=== PATIENT | female | born 1990 | race Caucasian/White ===

== ENCOUNTER 2018-03-07 09:04 | Emergency (ER) | payer OTHER ==
[2018-03-07 09:09] VITALS: BP 127/83; PULSE 73; RESP 16; TEMP 97.5
[2018-03-07] MEDS ORDERED: DIPH,PERTUS(ACELL)TETVAC-LF 0.5 ML VIAL IM ONE (09:20)
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
== END 2018-03-07 10:47 | disposition home or self-care (01) ==
LOC: EC 09:04
DX: S61.411A Laceration without foreign body of right hand, initial encounter (principal); Z23 Encounter for immunization; Z87.891 Personal history of nicotine dependence; W25.XXXA Contact with sharp glass, initial encounter
CPT/HCPCS: 90471; 90715; 99282

== ENCOUNTER 2018-08-05 16:44 | Emergency (ER) | payer BC, OTHER ==
--- NOTE | 2018-08-05 17:45 | ED ---
General Adult HPI - General Chief complaint: Shortness of Breath Stated complaint: SOB Time Seen by Provider: 08/05/18 17:30 Source: patient Mode of arrival: wheelchair Limitations: no limitations - History of Present Illness Initial comments: Patient is a 28-year-old female presents with chief complaint shortness of breath. This been going on and off for 3 months. Patient states that her symptoms were worse today. The patient states that she is violating, moving, and is very busy at work. She did not have any history of anxiety disorder however she states that she has been essentially anxious recently patient also complaining of tingling in bilateral upper extremities, and in her face. She states that these symptoms wax and wane and she notes that it is worse with hyperventilation. Patient is otherwise healthy does not use any medications on a daily basis, she is not a smoker, drinks occasionally, no recreational drug use. - Related Data Home Medications Medication Instructions Recorded Confirmed No Known Home Medications 03/07/18 08/05/18 Allergies Allergy/AdvReac Type Severity Reaction Status Date / Time No Known Allergies Allergy Verified 08/05/18 17:53 Review of Systems ROS Statement: Those systems with pertinent positive or pertinent negative responses have been documented in the HPI. ROS Other: All systems not noted in ROS Statement are negative. Respiratory: Reports: dyspnea Neurological: Reports: paresthesias Past Medical History Past Medical History: No Reported History History of Any Multi-Drug Resistant Organisms: None Reported Past Surgical History: No Surgical Hx Reported Past Anesthesia/Blood Transfusion Reactions: No Reported Reaction Past Psychological History: No Psychological Hx Reported Smoking Status: Former smoker Past Alcohol Use History: Occasional Past Drug Use History: None Reported - Past Family History Mother Family Medical History: No Reported History Additional Family Medical History / Comment(s): emphysema General Exam Limitations: no limitations General appearance: alert, in no apparent distress Head exam: Present: atraumatic, normocephalic Eye exam: Present: normal appearance ENT exam: Present: normal exam Neck exam: Present: normal inspection Respiratory exam: Present: normal lung sounds bilaterally. Absent: respiratory distress, wheezes Cardiovascular Exam: Present: regular rate, normal rhythm GI/Abdominal exam: Present: soft. Absent: distended, tenderness Rectal exam: Present: deferred Extremities exam: Present: normal inspection Back exam: Present: normal inspection Neurological exam: Present: alert, oriented X3 Psychiatric exam: Present: normal affect, normal mood, anxious Skin exam: Present: warm, dry, intact Course Vital Signs 08/05/18 08/05/18 17:15 17:30 Temperature 98.8 F Pulse Rate 117 H Respiratory 22 18 Rate Blood Pressure 120/73 O2 Sat by Pulse 100 Oximetry Medical Decision Making - Medical Decision Making Patient is a 28-year-old female presents with a chief complaint of shortness of breath. On initial evaluation, patient is slightly tachycardic. Otherwise vitals are stable. Oxygen saturation 100%. History and physical examination was consistent with anxiety/panic attack and hyperventilation. Patient is somewhat tearful on exam secondary to being scared. Patient will be evaluated in the patient lives including EKG, and d-dimer. I discussed that she is otherwise very low risk for PE given her tachycardia we will send this test to rule it out. Laboratory evaluation this patient is unremarkable including a negative d-dimer. X-ray shows no acute process. At this time, patient stable for discharge. She was instructed to follow up with primary care in 1-2 days, return to the ED if symptoms worsen or change. Patient was informed that there is likely a large component of anxiety contributing to her symptoms. She was instructed on breathing techniques and was also instructed to follow up with primary care regarding this issue. - Lab Data Result diagrams: 08/05/18 17:55 08/05/18 17:55 Lab Results 08/05/18 08/05/18 08/05/18 Range/Units 17:55 17:55 17:55 WBC 7.1 (3.8-10.6) k/uL RBC 5.35 (3.80-5.40) m/uL Hgb 15.0 (11.4-16.0) gm/dL Hct 43.2 (34.0-46.0) % MCV 80.6 (80.0-100.0) fL MCH 27.9 (25.0-35.0) pg MCHC 34.6 (31.0-37.0) g/dL RDW 14.1 (11.5-15.5) % Plt Count 36 L (150-450) k/uL Neutrophils % 65 % Lymphocytes % 23 % Monocytes % 8 % Eosinophils % 2 % Basophils % 1 % Neutrophils # 4.6 (1.3-7.7) k/uL Lymphocytes # 1.6 (1.0-4.8) k/uL Monocytes # 0.6 (0-1.0) k/uL Eosinophils # 0.1 (0-0.7) k/uL Basophils # 0.1 (0-0.2) k/uL Manual Slide Review Performed D-Dimer 0.28 (<0.60) mg/L FEU Sodium 142 (137-145) mmol/L Potassium 3.6 (3.5-5.1) mmol/L Chloride 113 H (98-107) mmol/L Carbon Dioxide 18 L (22-30) mmol/L Anion Gap 11 mmol/L BUN 11 (7-17) mg/dL Creatinine 0.60 (0.52-1.04) mg/dL Est GFR (CKD-EPI)AfAm >90 (>60 ml/min/1.73 sqM) Est GFR (CKD-EPI)NonAf >90 (>60 ml/min/1.73 sqM) Glucose 107 H (74-99) mg/dL Calcium 10.3 H (8.4-10.2) mg/dL HCG, Qual Not Detected Urine Color Urine Appearance (Clear) Urine pH (5.0-8.0) Ur Specific [place] (1.001-1.035) Urine Protein (Negative) Urine Glucose (UA) (Negative) Urine Ketones (Negative) Urine Blood (Negative) Urine Nitrite (Negative) Urine Bilirubin (Negative) Urine Urobilinogen (<2.0) mg/dL Ur Leukocyte Esterase (Negative) 08/05/18 Range/Units 17:55 WBC (3.8-10.6) k/uL RBC (3.80-5.40) m/uL Hgb (11.4-16.0) gm/dL Hct (34.0-46.0) % MCV (80.0-100.0) fL MCH (25.0-35.0) pg MCHC (31.0-37.0) g/dL RDW (11.5-15.5) % Plt Count (150-450) k/uL Neutrophils % % Lymphocytes % % Monocytes % % Eosinophils % % Basophils % % Neutrophils # (1.3-7.7) k/uL Lymphocytes # (1.0-4.8) k/uL Monocytes # (0-1.0) k/uL Eosinophils # (0-0.7) k/uL Basophils # (0-0.2) k/uL Manual Slide Review D-Dimer (<0.60) mg/L FEU Sodium (137-145) mmol/L Potassium (3.5-5.1) mmol/L Chloride (98-107) mmol/L Carbon Dioxide (22-30) mmol/L Anion Gap mmol/L BUN (7-17) mg/dL Creatinine (0.52-1.04) mg/dL Est GFR (CKD-EPI)AfAm (>60 ml/min/1.73 sqM) Est GFR (CKD-EPI)NonAf (>60 ml/min/1.73 sqM) Glucose (74-99) mg/dL Calcium (8.4-10.2) mg/dL HCG, Qual Urine Color Light Yellow Urine Appearance Clear (Clear) Urine pH 6.5 (5.0-8.0) Ur Specific [place] 1.005 (1.001-1.035) Urine Protein Negative (Negative) Urine Glucose (UA) Negative (Negative) Urine Ketones 1+ H (Negative) Urine Blood Negative (Negative) Urine Nitrite Negative (Negative) Urine Bilirubin Negative (Negative) Urine Urobilinogen <2.0 (<2.0) mg/dL Ur Leukocyte Esterase Negative (Negative) Disposition Clinical Impression: SOB (shortness of breath), Panic attack as reaction to stress Disposition: HOME SELF-CARE Condition: Good Instructions (If sedation given, give patient instructions): Anxiety (ED) Is patient prescribed a controlled substance at d/c from ED?: No Referrals: Lionel Moise DO [Primary Care Provider] - 1-2 days
[2018-08-05 18:25] LABS: Appearance,Urine Clear (Clear); Bilirubin,Urine Negative (Negative); Blood,Urine Negative (Negative); Color,Urine Light Yellow; Glucose,Urine (UA) Negative (Negative); Ketones,Urine 1+ (Negative); Leukocyte Esterase,Urine Negative (Negative); Nitrite,Urine Negative (Negative); PH, Urine 6.5 (5.0-8.0); Protein,Urine Negative (Negative); Specific Gravity,Urine 1.005 (1.001-1.035); Urobilinogen,Urine <2.0 mg/dL (<2.0)
[2018-08-05 18:33] LABS: HCG,Qualitative Serum Not Detected
[2018-08-05 18:35] LABS: Anion Gap 11 mmol/L; Blood Urea Nitrogen 11 mg/dL (7-17); Calcium 10.3 mg/dL (8.4-10.2); Carbon Dioxide 18 mmol/L (22-30); Chloride 113 mmol/L (98-107); Glucose 107 mg/dL (74-99); Potassium 3.6 mmol/L (3.5-5.1); Sodium 142 mmol/L (137-145)
[2018-08-05 18:39] LABS: Basophils # (A) 0.1 k/uL (0-0.2); Basophils % (A) 1 %; Eosinophils # (A) 0.1 k/uL (0-0.7); Eosinophils % (A) 2 %; HCT 43.2 % (34.0-46.0); Lymphocytes # (A) 1.6 k/uL (1.0-4.8); Lymphocytes % (A) 23 %; MCH 27.9 pg (25.0-35.0); MCHC 34.6 g/dL (31.0-37.0); MCV 80.6 fL (80.0-100.0); Monocytes # (A) 0.6 k/uL (0-1.0); Monocytes % (A) 8 %; Neutrophils # (A) 4.6 k/uL (1.3-7.7); Neutrophils % (A) 65 %; Platelet Count 36 k/uL (150-450); RBC 5.35 m/uL (3.80-5.40); RDW 14.1 % (11.5-15.5); WBC 7.1 k/uL (3.8-10.6)
[2018-08-05 19:04] VITALS: RESP 18
--- NOTE | 2018-08-05 19:42 | XR ---
EXAMINATION TYPE: XR chest 2V DATE OF EXAM: 08/05/2018 COMPARISON: NONE HISTORY: Dyspnea TECHNIQUE: Frontal and lateral views of the chest are obtained. FINDINGS: There is no focal air space opacity, pleural effusion, or pneumothorax seen. The cardiac silhouette size is within normal limits. The osseous structures are intact. IMPRESSION: No acute cardiopulmonary process.
[2018-08-05 20:06] VITALS: BP 115/74; PULSE 75; TEMP 98.2
== END 2018-08-05 20:14 | disposition home or self-care (01) ==
LOC: EC 16:44
DX: F43.0 Acute stress reaction (principal); Z87.891 Personal history of nicotine dependence
CPT/HCPCS: 36415; 71046; 80048; 81003; 84703; 85025; 85379; 93005; 99285

== ENCOUNTER 2019-07-19 22:10 | Inpatient (IN) | payer BC, OTHER ==
[2019-07-19] MEDS ORDERED: ACETAMINOPHEN IV (For NPO) 1,000 MG in EMPTY BAG 1 BAG IVPB ONE (23:00)
[2019-07-19 23:01] LABS: Basophils % (A) 0 %; Eosinophils # (A) 0.1 k/uL (0-0.7); Eosinophils % (A) 1 %; HCT 34.5 % (34.0-46.0); HGB 11.4 gm/dL (11.4-16.0); Lymphocytes # (A) 0.7 k/uL (1.0-4.8); Lymphocytes % (A) 7 %; MCH 27.4 pg (25.0-35.0); Mean Platelet Volume 7.1; Monocytes # (A) 0.2 k/uL (0-1.0); Monocytes % (A) 2 %; Neutrophils # (A) 9.2 k/uL (1.3-7.7); Neutrophils % (A) 89 %; Platelet Count 209 k/uL (150-450); RBC 4.16 m/uL (3.80-5.40); RDW 13.9 % (11.5-15.5); WBC 10.3 k/uL (3.8-10.6)
[2019-07-19 23:13] LABS: Appearance,Urine Cloudy (Clear); Bacteria,Urine Occasional /hpf; Bilirubin,Urine Negative (Negative); Blood,Urine Trace (Negative); Color,Urine Light Yellow; Glucose,Urine (UA) Negative (Negative); Ketones,Urine Negative (Negative); Leukocyte Esterase,Urine Large (Negative); Mucus,Urine Rare /hpf; Nitrite,Urine Negative (Negative); PH, Urine 6.5 (5.0-8.0); Protein,Urine Trace (Negative); RBC,Urine 2 /hpf (0-5); Specific Gravity,Urine 1.008 (1.001-1.035); Squamous Epithelial Cell,Urine 5 /hpf (0-4); Urobilinogen,Urine <2.0 mg/dL (<2.0); WBC,Urine 54 /hpf (0-5)
[2019-07-19] MEDS: LACTATED RINGERS 1,000 ML IV SCH (23:15)
[2019-07-20] MEDS: BETAMET ACET-BETAMETH SOD PHOS 6 MG/ML VIAL IM SCH (00:10)
[2019-07-20] MEDS: LACTATED RINGERS 1,000 ML IV SCH ×5 (00:41→20:03)
[2019-07-20] MEDS: CEFEPIME 1 GM in SODIUM CHLORIDE 0.9% 50 ML IVPB SCH ×2 (01:00→13:14)
[2019-07-20 04:04] VITALS: RESP 16
[2019-07-20] MEDS ORDERED: ACETAMINOPHEN TAB 500 MG TAB PO PRN (06:45)
--- NOTE | 2019-07-20 08:52 | P.HPOB ---
History of Present Illness H&P Date: 07/20/19 Chief Complaint: Fever of 101 at home, right flank pain This is a 29-year-old white female 2 para 1001 EDC 08/13/2019 at 36-2/7 weeks' gestation. Patient presented from home with a history of a fever of 101 that was intermittent over the past 2-3 days. This was accompanied by shakes and chills, and right flank pain. Fetus is been active throughout the . She denied vaginal bleeding or fluid leakage. No uterine contractions. Past history is essentially negative. Past surgical history section 2015. ALLERGIES none known. Current medications vitamins daily, Tylenol every 4-6 hours. Social history patient is , she is never been a smoker, she denies alcohol or drug use. history has been essentially unremarkable, group B strep cultures done in the office this week, pending. Family history is noncontributory. On exam patient is 5 foot 8 inches, 230 pounds, initial temperature in the ER 100.5, elevated to 101. Initial pulse 130, blood pressure 130s over 70s. Respiratory rate 20 in the emergency room this morning. The general physical exam reveals chest to be clear, abdomen nontender, fundal height 36 cm, vertex presentation by Tesfaye's. There is mild right flank pain this morning noted by CVA tenderness. Extremities reveal no edema. Cervix is long, closed, posterior, soft. heart rate is consistent with reactive NST, tachycardia noted early this morning in the emergency room. UA consistent with pyelonephritis with leukocytes, white blood cells, and bacteria, culture pending. White count on admission 10.3, CO2 slightly decreased, sodium 133. Impression: Right pyelonephritis, tachypnea tachycardia and febrile last night, vital signs now normalized. Co-vid testing in the emergency department negative. Plan: Continue cefepime 1 g every 12 hours, good clinical response noted after first dose. First dose received at 0100. Celestone 12.5 mg first dose received, repeat dose in 12 hours. Continue oral Tylenol 1000mg q 4-6 hours as needed for fever. Regular diet. Patient may shower. Vital signs every 4 hours. Patient will continue on IV antibiotics until afebrile for 24 hours, then likely home on oral cephalosporin for 10-14 days. She is scheduled for repeat section on 08/13/19 with tubal ligation. Review of Systems Constitutional: Reports as per HPI, Reports chills, Reports fever, Reports lethargy Past Medical History Past Medical History: No Reported History History of Any Multi-Drug Resistant Organisms: None Reported Past Surgical History: No Surgical Hx Reported Past Anesthesia/Blood Transfusion Reactions: No Reported Reaction Past Psychological History: No Psychological Hx Reported Smoking Status: Never smoker Past Alcohol Use History: None Reported Past Drug Use History: None Reported - Past Family History Mother Family Medical History: Asthma, COPD Additional Family Medical History / Comment(s): emphysema Medications and Allergies Home Medications Medication Instructions Recorded Confirmed Type Acetaminophen [Tylenol Extra 500 mg PO Q6HR PRN 07/19/19 07/19/19 History Strength] Pnv No.95/Ferrous Fum/Folic AC 1 each PO DAILY 07/19/19 07/19/19 History [ Multivitamin Tablet] Allergies Allergy/AdvReac Type Severity Reaction Status Date / Time No Known Allergies Allergy Verified 07/19/19 22:27 Exam Vital Signs Temp Pulse Resp BP Pulse Ox 07/20/19 04:00 97.7 F 89 16 111/64 98 07/20/19 01:00 98.2 F 07/20/19 00:35 101.2 F H 109 H 18 104/59 97 07/20/19 00:00 101.2 F H 109 H 18 104/59 97 07/19/19 23:50 101.2 F H 109 H 18 104/59 97 07/19/19 22:55 100.5 F H 121 H 20 117/68 99 Intake and Output 07/19/19 07/20/19 07/20/19 22:59 06:59 14:59 Other: # Voids 2 Weight 104.326 kg 104.326 kg See dictation under HPI please Results Result Diagrams: 07/19/19 22:30 07/19/19 22:30 Abnormal Lab Results - Last 24 Hours (Table) 07/19/19 07/19/19 07/19/19 Range/Units 22:30 22:30 22:55 Neutrophils # 9.2 H (1.3-7.7) k/uL Lymphocytes # 0.7 L (1.0-4.8) k/uL Sodium 133 L (137-145) mmol/L Carbon Dioxide 19 L (22-30) mmol/L Urine Appearance Cloudy H (Clear) Urine Protein Trace H (Negative) Urine Blood Trace H (Negative) Ur Leukocyte Esterase Large H (Negative) Urine WBC 54 H (0-5) /hpf Ur Squamous Epith Cells 5 H (0-4) /hpf Urine Bacteria Occasional H (None) /hpf Urine Mucus Rare H (None) /hpf Microbiology - Last 24 Hours (Table) 07/19/19 22:55 Urine Culture - Preliminary Urine,Voided Assessment and Plan Assessment: 36-2/7 weeks intrauterine , pyelonephritis. Responding well to antibiotics and firmness. Covid testing negative. Plan: Continue cefepime 1 g every 12 hours IV piggyback. Second dose of steroids ordered. Continue close surveillance. Anticipate discharge home when afebrile for 24 hours, likely tomorrow morning, on oral cephalosporins for 10-14 days.
[2019-07-21] MEDS: BETAMET ACET-BETAMETH SOD PHOS 6 MG/ML VIAL IM SCH (00:25)
[2019-07-21] MEDS: CEFEPIME 1 GM in SODIUM CHLORIDE 0.9% 50 ML IVPB SCH (00:26)
[2019-07-21] MEDS: LACTATED RINGERS 1,000 ML IV SCH (00:39)
[2019-07-21 00:43] VITALS: BP 108/65; PULSE 81; TEMP 97.8
--- NOTE | 2019-07-21 11:13 | P.DS ---
Providers Date of admission: 07/20/19 11:40 Expected date of discharge: 07/21/19 Attending physician: Ana Adair Primary care physician: Stated None Hospital Course: This is a 29-year-old white female 2 para 1001 who presented at 36-3/7 weeks with right flank pain, fever of 101 at home, and shaking chills. Urine analysis was consistent with UTI, diagnosis of pyelonephritis was made. White count on admission 10.4. Please see dictated history and physical for details. Patient was admitted, 17 1 g was given every 12 hours intravenously 3 doses. O firm it was also given, and patient defervesced. Betamethasone was given 2 doses. After patient was afebrile for 24 hours she requested discharge home. She has been given a prescription for Keflex 500 mg to be taken orally every 8 hours for 10 days. She will use Tylenol if needed, however I've asked her to call me if the fever shakes or chills should return. Fetus is been active throughout the and reactive NST was noted. On admission patient was tachycardic with a pulse of 130, however was discharged home with a pulse in the 70s. She will follow-up in the office with me as scheduled this week. Increase oral fluids, call with any issues or difficulties. Patient Condition at Discharge: Good Plan - Discharge Summary Discharge Rx Participant: No New Discharge Prescriptions: No Action Pnv No.95/Ferrous Fum/Folic AC [ Multivitamin Tablet] 1 each PO DAILY Acetaminophen [Tylenol Extra Strength] 500 mg PO Q6HR PRN PRN Reason: Fever Discharge Medication List Acetaminophen [Tylenol Extra Strength] 500 mg PO Q6HR PRN 07/19/19 [History] Pnv No.95/Ferrous Fum/Folic AC [ Multivitamin Tablet] 1 each PO DAILY 07/19/19 [History] Follow up Appointment(s)/Referral(s): Ana Adair MD [STAFF PHYSICIAN] - 1 Week Patient Instructions/Handouts: Urinary Tract Infection in (DC) Discharge Disposition: HOME SELF-CARE
== END 2019-07-21 01:25 | disposition home or self-care (01) | DRG 833 ==
LOC: FBPOP 22:10 → 4FBP 07-20 00:11 → OBSVTOIN 07-20 11:40
PROVIDERS: ADMIT Obstetrics & Gynecology; ATTEND Obstetrics & Gynecology
DX: O23.03 Infections of kidney in pregnancy, third trimester (principal); Z3A.36 36 weeks gestation of pregnancy; O36.8330 Maternal care for abnormalities of the fetal heart rate or rhythm, third trimester, not applicable or unspecified; Z82.5 Family history of asthma and other chronic lower respiratory diseases
CPT/HCPCS: 59025; 80051; 81001; 85025; 87040; 87077; 87086; 87186; 87635; 96360; 96372; 99214

== ENCOUNTER 2019-08-03 21:45 | Outpatient (CLI) | payer BC, OTHER ==
[2019-08-03 23:28] VITALS: BP 131/74; PULSE 101; RESP 16; TEMP 98
--- NOTE | 2019-09-03 11:50 | P.MSEPDOC ---
Presenting Problems - Arrival Data Date of Arrival on Unit: 08/03/19 Time of Arrival on Unit: 21:45 Mode of Transport: Wheelchair - Complaint OB-Reason for Admission/Chief Complaint: Possible Onset of Labor Comment: contractions 5 min apart since 1829 Medical History - Information : 2 Para: 1 Term: 1 : 0 Abortions: Spontaneous or Elective: 0 Number of Living Children: 1 - Gestational Age Gestational Age by MALIK (wks/days): 38 Weeks and 2 Days - History Complications: Prior Review of Systems - Review of Systems Constitutional: No problems Breast: No problems ENT: No problems Cardiovascular: No problems Respiratory: No problems Gastrointestinal: No problems Genitourinary: No problems Musculoskeletal: No problems Neurological: No problems Skin: No problems Vital Signs - Temperature Temperature: 98.0 F Temperature Source: Oral - Pulse Right Sitting Pulse Rate: 101 Pulse Assessment Method: Automatic Cuff - Respirations Respiratory Rate: 16 Oxygen Delivery Method: Room Air O2 Sat by Pulse Oximetry: 98 - Blood Pressure Right Arm Sitting Blood Pressure: 131/74 Blood Pressure Mean: 93 Blood Pressure Source: Automatic Cuff Medical Screen Scoring (Pre) - Cervical Exam Dilation: 0 cm = 0 Membranes: Intact - Uterine Contractions Frequency: Scheduled / = 6 Duration: > 40 seconds = 2 - Total Score - Baby A Total Score - Baby A: 8 - Total Score - Baby B Total Score - Baby B: 8 - Total Score - Baby C Total Score - Baby C: 8 - Level of Risk - Baby A Level of Risk - Baby A: Medium (6-9) - Level of Risk - Baby B Level of Risk - Baby B: Medium (6-9) - Level of Risk - Baby C Level of Risk - Baby C: Medium (6-9) Physician Notification (Pre) - Physician Notified Physician Notified Date: 08/03/19 Physician Notified Time: 23:07 New Order Received: Yes - Notification Comment Comment: Pt has apt with [facility] on . Pt has R C/S sced for 08/12 Disposition - Disposition OB Disposition: Discharge to home, Written follow up instructions reviewed Discharge Date: 08/03/19 Discharge Time: 23:10 I agree with the RN Medical Screening Exam: Yes Risk & Benefit of care provided described in d/c instruction: Yes Diagnosis: FALSE LABOR AT OR AFTER 37 COMPLETED WEEKS OF GESTATION
== END 2019-08-03 23:10 | disposition home or self-care (01) ==
LOC: FBPOP 21:45
PROVIDERS: ATTEND Obstetrics & Gynecology Obstetrics
DX: O47.1 False labor at or after 37 completed weeks of gestation (principal); Z3A.38 38 weeks gestation of pregnancy
CPT/HCPCS: 59025; 99213

== ENCOUNTER 2019-08-09 06:02 | Inpatient (IN) | payer BC, OTHER ==
[2019-08-08 12:33] VITALS: BMI 35.7
[2019-08-09] MEDS ORDERED: LACTATED RINGERS 1,000 ML IV ONE (06:18)
[2019-08-09] MEDS ORDERED: CITRIC ACID-SODIUM CITRATE 15 ML CUP PO ONE (06:18)
[2019-08-09 06:41] LABS: Basophils % (A) 0 %; Eosinophils # (A) 0.2 k/uL (0-0.7); Eosinophils % (A) 2 %; HCT 34.8 % (34.0-46.0); HGB 11.7 gm/dL (11.4-16.0); Hypochromasia Slight; Lymphocytes # (A) 1.8 k/uL (1.0-4.8); Lymphocytes % (A) 18 %; MCHC 33.6 g/dL (31.0-37.0); MCV 80.3 fL (80.0-100.0); Mean Platelet Volume 7.1; Monocytes # (A) 0.7 k/uL (0-1.0); Monocytes % (A) 7 %; Neutrophils # (A) 7.1 k/uL (1.3-7.7); Neutrophils % (A) 70 %; Platelet Count 276 k/uL (150-450); RBC 4.33 m/uL (3.80-5.40); RDW 13.9 % (11.5-15.5); WBC 10.1 k/uL (3.8-10.6)
[2019-08-09] MEDS ORDERED: KETOROLAC 30 MG/ML 1 ML VIAL ONE (08:04)
[2019-08-09] MEDS ORDERED: NALBUPHINE 10 MG/ML (1 ML AMP) ONE (08:04)
[2019-08-09] MEDS ORDERED: MORPHINE SULFATE (PF) 0.3 MG/0.3 ML SYR ONE (08:04)
[2019-08-09] MEDS ORDERED: OXYTOCIN 10 UNIT/ML 1 ML VIAL ONE (08:04)
[2019-08-09] MEDS ORDERED: ONDANSETRON 4 MG/2 ML VIAL ONE (08:04)
--- NOTE | 2019-08-09 08:59 | P.OP ---
Date of Procedure: 08/09/19 Preoperative Diagnosis: 39 and one sevenths week intrauterine , previous declining . History of macrosomia. Postoperative Diagnosis: Same, nuchal cord 1, liveborn male . Normal-appearing tubes and ovaries bilaterally. Procedure(s) Performed: Repeat low transverse section. Anesthesia: spinal Surgeon: Ana Adair Program Director/Morning Show Host #1: Windy Cowan Estimated Blood Loss (ml): 669 IV fluids (ml): 700 Urine output (ml): 300 Pathology: none sent Condition: stable Disposition: observation Operative Findings: Liveborn male , left occiput transverse position, 4370 g. Nuchal cord 1. Normal-appearing tubes and ovaries bilaterally. Description of Procedure: Patient is brought to the operating suite where a spinal analgesia is admini stered without difficulty. Antibiotics are given. The appropriate timeout is performed to assure proper patient and procedural identification. Option for tubal ligation has been declined. The abdomen is prepped and draped in usual sterile fashion. Left lateral uterine displacement is performed. Cline catheter is placed to direct drainage. The analgesia is checked and noted to be adequate. A repeat low transverse skin incision is made. This is carried down through the subcutaneous tissue which is isolated, scored, and extended bilaterally with curved Hoskins scissors. Fascia is next identified and incised, and extended bilaterally with curved Hoskins scissors. Peritoneum is entered, entry is atraumatic. Bladder blade is created with Metzenbaum scissors and at all times the bladder is Well from the operative field to avoid bladder and/or ureteral injury. A repeat low transverse uterine incision is made in this is extended with blunt dissection. Artificial amniorrhexis reveals abundant clear fluid. Infant's head is delivered in the left occiput transverse position. There was a nuchal cord 1 that is reduced. The oropharynx, nasopharynx, and external nares were all bulb suctioned on the perineal body. Patient is officially delivered of a liveborn male infant at 0820 hours. Umbilical cord is doubly clamped and ligated, he is handed to waiting nurses for evaluation where scores of 8 and 9 at one and 5 minutes respectively are given. weighed 9 lbs. 10 oz. or 4370 g. The placenta is delivered manually, it is inspected and noted to be intact with trivascular cord at 0821 hours. Uterus is then massaged. Pitocin is given. Uterus is closed in a two-step fashion, first layer running locking with 0 Vicryl, second layer imbricated with 0 Vicryl is well. Excellent reapproximation is noted. Bilateral tubes and ovaries appear normal to inspection. The abdomen is suctioned with suction on guard and the uterus is placed back into the abdominal cavity. Bilateral gutters are inspected and cleaned. Hemostasis is excellent. The peritoneum is allowed to close by secondary intention. The fascia is closed in a running stitch of 0 Vicryl with over ligation in the midline. Subcutaneous tissue is irrigated, inspected, noted to be clean and dry. It is reapproximated with 3-0 Vicryl in a running fashion. Depth of subcutaneous tissue 6-8 cm. 4-0 undyed Monocryl is used for final subcuticular skin closure. Steri-Strips and Mastisol are applied to the wound. Uterus is massaged. Patient is brought back to the recovery room in very good condition with stable vital signs. All sponge needle and enhancement counts are correct. Patient is requesting circumcision for her infant son. Cline is noted to be draining clear urine.
[2019-08-09] MEDS ORDERED: diphenhydrAMINE 25 MG CAP PO PRN (09:03)
[2019-08-09] MEDS ORDERED: SIMETHICONE 80 MG CHEWABLE PO PRN (09:03)
[2019-08-09] MEDS ORDERED: diphenhydrAMINE 50 MG/ML 1 ML VIAL IVP PRN ×2 (09:03)
[2019-08-09] MEDS ORDERED: METOCLOPRAMIDE 5 MG/ML 2 ML VIAL IVP PRN (09:03)
[2019-08-09] MEDS ORDERED: ZOLPIDEM 5 MG TAB PO PRN (09:03)
[2019-08-09] MEDS ORDERED: NALOXONE 0.4 MG/ML 1 ML VIAL IV PRN (09:03)
[2019-08-09] MEDS ORDERED: diphenhydrAMINE 50 MG CAP PO PRN (09:03)
[2019-08-09] MEDS ORDERED: ONDANSETRON 4 MG/2 ML VIAL IVP PRN (09:03)
--- NOTE | 2019-08-09 09:03 | P.HPOB ---
History of Present Illness H&P Date: 08/09/19 Chief Complaint: Here for repeat section at 39 and one sevenths weeks, declining VB This is a 29-year-old white female 2 para 1001 EDC 08/15/2019 at 39 and one sevenths weeks' gestation. Patient presents for repeat low transverse section. She is declining option for tubal ligation. Fetus is been active throughout the . Past medical history is unremarkable. Past surgical history section 2016 for failure to progress. Current medications vitamins daily. ALLERGIES none known. Family history significant for hypertension, emphysema, [place]. Social history patient is , she is never been a smoker, she denies al cohol or drug use. history is significant for blood type A+, rubella status immune. VDRL testing, urine culture, hepatitis B surface antigen, HIV testing, gonorrhea and chlamydia cultures, group B strep cultures all negative. One-hour Glucola elevated, 3 hour GTT within normal limits. On exam this is a pleasant white female who is 5 foot 8 inches, 235 pounds, blood pressure 114/72 on admission. The general physical exam is within normal limits. Abdomen is obvious E gravid with a fundal height of 40+ centimeters. Infant is vertex to Tesfaye's maneuvers. Cervix is fingertip, 60%, -2 station. heart rate is consistent with reactive NST. Impression: 39 and one sevenths weeks intrauterine , declining option for , declining tubal ligation. Here for repeat low transverse section. Plan: Antibiotics are to be given. All risks benefits and alternatives of the her seizure are discussed in detail. All questions answered. We will proceed with repeat low transverse section with spinal analgesia. Review of Systems Constitutional: Reports as per HPI Past Medical History Past Medical History: No Reported History Additional Past Medical History / Comment(s): recent tx for UTI History of Any Multi-Drug Resistant Organisms: None Reported Past Surgical History: Section Additional Past Surgical History / Comment(s): dental Past Anesthesia/Blood Transfusion Reactions: No Reported Reaction Past Psychological History: No Psychological Hx Reported Smoking Status: Former smoker Past Alcohol Use History: None Reported Additional Past Alcohol Use History / Comment(s): quit smoking age 18, smoked for 1 yr Past Drug Use History: None Reported - Past Family History Mother Family Medical History: COPD Additional Family Medical History / Comment(s): emphysema Father Family Medical History: Coronary Artery Disease (CAD), Hypertension, Myocardial Infarction ([place]) Additional Family Medical History / Comment(s): Medications and Allergies Home Medications Medication Instructions Recorded Confirmed Type Pnv No.95/Ferrous Fum/Folic AC 1 each PO DAILY 07/19/19 08/09/19 History [ Multivitamin Tablet] Allergies Allergy/AdvReac Type Severity Reaction Status Date / Time No Known Allergies Allergy Verified 08/09/19 06:18 Exam Vital Signs Temp Pulse Resp BP Pulse Ox 08/09/19 06:20 98.3 F 100 18 114/72 98 Intake and Output 08/08/19 08/09/19 08/09/19 22:59 06:59 14:59 Other: Weight 106.594 kg See dictation under HPI please Results Result Diagrams: 08/09/19 06:25 Assessment and Plan Assessment: 39 and one sevenths week intrauterine , here for repeat low transverse section, declining . Plan: For repeat low transverse section this morning. Antibiotics given. All questions answered. Declining option for tubal ligation. Time with Patient: Less than 30
[2019-08-09] MEDS: LACTATED RINGERS 1,000 ML IV SCH ×3 (13:41→22:02)
[2019-08-09] MEDS: KETOROLAC 30 MG/ML 1 ML VIAL IVP SCH ×2 (15:23→21:58)
[2019-08-09] MEDS: SENNOSIDES-DOCUSATE SODIUM 1 EACH TAB PO SCH (19:12)
[2019-08-10] MEDS: KETOROLAC 30 MG/ML 1 ML VIAL IVP SCH ×3 (04:16→13:13)
[2019-08-10 06:11] LABS: Basophils % (A) 0 %; Eosinophils # (A) 0.2 k/uL (0-0.7); Eosinophils % (A) 2 %; HGB 10.1 gm/dL (11.4-16.0); Hypochromasia Slight; Lymphocytes # (A) 1.8 k/uL (1.0-4.8); Lymphocytes % (A) 17 %; MCH 26.8 pg (25.0-35.0); MCHC 32.7 g/dL (31.0-37.0); MCV 81.9 fL (80.0-100.0); Monocytes # (A) 0.8 k/uL (0-1.0); Monocytes % (A) 7 %; Neutrophils # (A) 7.7 k/uL (1.3-7.7); Neutrophils % (A) 72 %; Platelet Count 230 k/uL (150-450); RBC 3.78 m/uL (3.80-5.40); RDW 14.3 % (11.5-15.5); WBC 10.7 k/uL (3.8-10.6)
--- NOTE | 2019-08-10 07:19 | P.PN ---
Progress Note - Text 08/09 700am 29-year-old female status post with a spinal Duramorph. Patient seen and evaluated this morning she has a VAS of 0 with no complains of nausea vomiting. She does have complaints of pruritus should subside the end of the day
[2019-08-10] MEDS: ACETAMINOPHEN TAB 325 MG TAB PO PRN ×3 (08:59→23:37)
[2019-08-10] MEDS: SENNOSIDES-DOCUSATE SODIUM 1 EACH TAB PO SCH ×2 (09:00→20:17)
--- NOTE | 2019-08-10 09:13 | P.PN ---
Subjective Progress Note Date: 08/10/19 Principal diagnosis: Postoperative day #1 Slept well, positive flatus, pain well controlled. Desiring circumcision for her . Objective - Vital Signs Vital signs: Vital Signs Temp 98.1 F 08/10/19 04:00 Pulse 85 08/10/19 04:00 Resp 18 08/10/19 04:00 BP 116/77 08/10/19 04:00 Pulse Ox 96 08/10/19 04:00 Intake & Output 08/09/19 08/10/19 08/10/19 18:59 06:59 18:59 Output Total 1169 1500 Balance -1169 -1500 Output: Urine 500 1500 Estimated Blood Loss 669 Other: Voiding Method Indwelling Catheter - Constitutional General appearance: Present: average body habitus, cooperative - EENT Eyes: Present: PERRLA ENT: Present: hearing grossly normal - Neck Neck: Present: normal ROM - Respiratory Respiratory: bilateral: CTA - Cardiovascular Rhythm: regular - Gastrointestinal Gastrointestinal Comment(s): Incision clean and dry, intact, Steri-Strips applied. Fundus firm, midline, symmetric, 18 week size. General gastrointestinal: Present: normal bowel sounds - Integumentary Integumentary: Present: normal - Neurologic Neurologic: Present: CNII-XII intact - Musculoskeletal Musculoskeletal: Present: gait normal, strength equal bilaterally - Psychiatric Psychiatric: Present: A&O x's 3, appropriate affect, intact judgment & insight - Labs CBC & Chem 7: 08/10/19 05:36 Labs: Abnormal Lab Results - Last 24 Hours (Table) 08/10/19 Range/Units 05:36 WBC 10.7 H (3.8-10.6) k/uL RBC 3.78 L (3.80-5.40) m/uL Hgb 10.1 L (11.4-16.0) gm/dL Hct 31.0 L (34.0-46.0) % Assessment and Plan Assessment: Doing well day #1 Plan: Continue care. Advanced diet and activity. Possible discharge home tomorrow. Time with Patient: Less than 30
[2019-08-10] MEDS: IBUPROFEN 600 MG TAB PO PRN ×2 (13:11→20:17)
[2019-08-11] MEDS: IBUPROFEN 600 MG TAB PO PRN ×2 (04:30→09:42)
[2019-08-11] MEDS: ACETAMINOPHEN TAB 325 MG TAB PO PRN (06:42)
--- NOTE | 2019-08-11 07:47 | P.DS ---
Providers Date of admission: 08/09/19 06:02 Expected date of discharge: 08/11/19 Attending physician: Ana Adair Primary care physician: Stated None Hospital Course: This is a 29-year-old white female 2 para 1001 EDC 08/15/2019 at 39 and one sevenths weeks' gestation. Patient presented for repeat low transverse section. is unremarkable, group B strep cultures negative, blood type A+. Rubella status immune. Please see my dictated history and physical for details. She underwent a low-transverse section and gave to a liveborn male infant with scores of 8 and 9 at one and 5 minutes respectively. He was in the left occiput transverse position. He weighed 4370 g or 9 lbs. 10 oz. Surgery was unremarkable, please see dictated operative note for details. This morning the patient is doing very well. She is voiding, ambulating, passing flatus without difficulty. Vital signs are stable and she is afebrile. Fundus is firm and in the midline, symmetric and 18 week size. Extremities are negative for edema. Breast-feeding is going well. has been circumcised and has been cleared for discharge home as well. Patient is being discharged home today in very good condition. She will follow- up in the office with me in 2 weeks for incision check. She is reminded no intercourse, tampons or douching. She will use [id number] Advil or Aleve, or ibuprofen as needed for pain. I've asked her to call with any fevers shakes or chills, foul smelling or copious lochia, with the passage of large blood clots, with any pain not alleviated by [id number] products, or indeed with any concerns. We have briefly discussed options for contraception and we will review this further in the office. Assessment: Doing well day number two Plan - Discharge Summary Discharge Rx Participant: No New Discharge Prescriptions: No Action Pnv No.95/Ferrous Fum/Folic AC [ Multivitamin Tablet] 1 each PO DAILY Discharge Medication List Pnv No.95/Ferrous Fum/Folic AC [ Multivitamin Tablet] 1 each PO DAILY 07/19/19 [History] Follow up Appointment(s)/Referral(s): Ana Adair MD [STAFF PHYSICIAN] - 2 Weeks Discharge Disposition: HOME SELF-CARE
[2019-08-11] MEDS: SENNOSIDES-DOCUSATE SODIUM 1 EACH TAB PO SCH (08:28)
[2019-08-11 09:49] VITALS: BP 113/75; PULSE 83; RESP 16; TEMP 98
== END 2019-08-11 12:15 | disposition home or self-care (01) | DRG 788 ==
LOC: 4FBP 06:02
PROVIDERS: ADMIT Obstetrics & Gynecology; ATTEND Obstetrics & Gynecology
PROC: 10D00Z1 Extraction of Products of Conception, Low, Open Approach (ICD-10-PCS; principal; 2019-08-09 08:00)
DX: O34.211 Maternal care for low transverse scar from previous cesarean delivery (principal); O69.81X0 Labor and delivery complicated by cord around neck, without compression, not applicable or unspecified; L29.9 Pruritus, unspecified; Z3A.39 39 weeks gestation of pregnancy; Z37.0 Single live birth; Z82.49 Family history of ischemic heart disease and other diseases of the circulatory system; Z82.5 Family history of asthma and other chronic lower respiratory diseases; Z87.891 Personal history of nicotine dependence
CPT/HCPCS: 85025; 86850; 86900; 86901

== ENCOUNTER 2021-02-01 19:17 | Outpatient (CLI) | payer BC, OTHER ==
[2021-02-01 20:44] VITALS: BP 131/80; PULSE 91; RESP 16; TEMP 97.5
--- NOTE | 2021-02-10 12:55 | P.MSEPDOC ---
Presenting Problems - Arrival Data Date of Arrival on Unit: 02/01/21 Time of Arrival on Unit: 19:17 Mode of Transport: Ambulatory - Complaint OB-Reason for Admission/Chief Complaint: Pain Comment: Shooting pelvic pain and back pain for the past two hours. Medical History - Information : 3 Para: 2 Term: 2 : 0 Abortions: Spontaneous or Elective: 0 Number of Living Children: 2 - Gestational Age Gestational Age by MALIK (wks/days): 35 Weeks and 2 Days Review of Systems - Review of Systems Constitutional: No problems Breast: No problems ENT: No problems Cardiovascular: No problems Respiratory: No problems Gastrointestinal: No problems Genitourinary: No problems Musculoskeletal: No problems Neurological: No problems Skin: No problems Vital Signs - Temperature Temperature: 97.5 F Temperature Source: Temporal Artery Scan - Pulse Right Brachial Pulse Rate: 91 Pulse Assessment Method: Automatic Cuff - Respirations Respiratory Rate: 16 Oxygen Delivery Method: Room Air - Blood Pressure Right Arm Blood Pressure: 131/80 Blood Pressure Mean: 97 Blood Pressure Source: Automatic Cuff Medical Screen Scoring - Cervical Exam Dilation (cm): 0 Effacement (%): 0 Membranes: Intact - Uterine Contractions Frequency From (mins): 5 Frequency To (mins): 7 Duration From (seconds): 60 Duration To (seconds): 80 Intensity: Mild Resting: Soft to palpation - Assessment - Baby A Baseline FHR: 140 Heart Rate - NICHD Category: Category I (Normal) NST: Reactive Physician Notification - Physician Notified Physician Notified Date: 02/01/21 Physician Notified Time: 19:50 Physician: Yasmeen Maguire New Order Received: Yes - Notification Comment Comment: RN spoke with Dr. Maguire. RN reported that patient arrived to triage with. complaints of sharp shooting pelvic pain and a back ache. Abdomen was soft to palpation.Patient is a , with two previous c/s. Patient is 35 2/7 weeks. Vaginal exam- closed and thick. Vital signs WNL. Patient rated her pain as a 4/10. Contractions, via TOCO, revealed contractions every 5-7 minutes. Patient rated those as mild. Dr. Merinotates patient can bedischarged and to call the office in the morning to give an update on how she did throughout the night. Dr. Hurtubise reccomended hydration, hands and knees and. happy/mad jim positioning, tyleonol PRN, and a heating pad. RN demonstrated the positioning for patient clarity and supplied the patient with an ice water before discharging. Patient states she understands the plan of care and has no questions at this time. Maternal Triage Index - Maternal Triage Index Presenting for scheduled procedure w/no complaint: No - Stat/Priority 1 Stat Priority 1: No - Urgent/Priority 2 Urgent Priority 2: No - Prompt/Priority 3 Prompt Priority 3: No - Non-Urgent/Priority 4 Non-Urgent Priority 4: Yes Criteria Met for Priority 4: > 37 weeks, common discomforts of Disposition - Disposition OB Disposition: Discharge to home Discharge Date: 02/01/21 Discharge Time: 20:35 I agree with the RN Medical Screening Exam: Yes Case reviewed; plan agreed upon as documented in EMR&OBIX.: Yes Diagnosis: pelvic pain in
== END 2021-02-01 20:35 | disposition home or self-care (01) ==
LOC: FBPOP 19:17
PROVIDERS: ATTEND Obstetrics & Gynecology
DX: O26.893 Other specified pregnancy related conditions, third trimester (principal); R10.2 Pelvic and perineal pain; Z3A.35 35 weeks gestation of pregnancy
CPT/HCPCS: 59025; 99213

== ENCOUNTER 2021-02-27 03:08 | Outpatient (CLI) | payer BC, OTHER ==
[2021-02-27] MEDS: LACTATED RINGERS 1,000 ML IV SCH ×2 (04:48→05:20)
[2021-02-27 05:01] LABS: Appearance,Urine Clear (Clear); Bacteria,Urine Rare /hpf; Bilirubin,Urine Negative (Negative); Blood,Urine Negative (Negative); Color,Urine Yellow; Glucose,Urine (UA) Negative (Negative); Ketones,Urine Trace (Negative); Leukocyte Esterase,Urine Trace (Negative); Mucus,Urine Few /hpf; Nitrite,Urine Negative (Negative); Protein,Urine Trace (Negative); RBC,Urine 4 /hpf (0-5); Specific Gravity,Urine 1.031 (1.001-1.035); Squamous Epithelial Cell,Urine 3 /hpf (0-4); Urobilinogen,Urine <2.0 mg/dL (<2.0); WBC,Urine 4 /hpf (0-5)
[2021-02-27 06:22] VITALS: BP 137/77; PULSE 88; RESP 16; TEMP 96.6
--- NOTE | 2021-04-09 09:26 | P.MSEPDOC ---
Presenting Problems - Arrival Data Date of Arrival on Unit: 02/27/21 Time of Arrival on Unit: 04:40 Mode of Transport: Ambulatory - Complaint OB-Reason for Admission/Chief Complaint: Possible Onset of Labor Medical History - Information : 3 Para: 2 Term: 2 : 0 Abortions: Spontaneous or Elective: 0 Number of Living Children: 2 - Gestational Age Gestational Age by MALIK (wks/days): 39 Weeks and 0 Days - History Complications: GBS+, Prior Review of Systems - Review of Systems Constitutional: No problems Breast: No problems ENT: No problems Cardiovascular: No problems Respiratory: No problems Gastrointestinal: No problems Genitourinary: No problems Musculoskeletal: No problems Neurological: No problems Skin: No problems Vital Signs - Temperature Temperature: 96.6 F Temperature Source: Temporal Artery Scan - Pulse Supine Brachial Pulse Rate: 88 Pulse Assessment Method: Automatic Cuff - Respirations Respiratory Rate: 16 Oxygen Delivery Method: Room Air O2 Sat by Pulse Oximetry: 98 - Blood Pressure Right Arm Supine Blood Pressure: 137/77 Blood Pressure Mean: 97 Blood Pressure Source: Automatic Cuff Medical Screen Scoring - Cervical Exam Dilation (cm): 0 Effacement (%): 50 Station: -4 Membranes: Intact - Uterine Contractions Frequency From (mins): 3 Frequency To (mins): 7 Duration From (seconds): 50 Duration To (seconds): 60 Intensity: Mild Resting: Soft to palpation - Assessment - Baby A Baseline FHR: 115 Heart Rate - NICHD Category: Category I (Normal) NST: Reactive Physician Notification - Physician Notified Physician Notified Date: 02/27/21 Physician Notified Time: 04:10 Physician: Reece Mendoza New Order Received: Yes - Notification Comment Comment: start IV of LR and send UA then call back. [id number] called back gave results of UA trace ketones trace protein, gave orders to give 2nd bag LR and discharge to home Maternal Triage Index - Maternal Triage Index Presenting for scheduled procedure w/no complaint: No - Stat/Priority 1 Stat Priority 1: No - Urgent/Priority 2 Urgent Priority 2: No - Prompt/Priority 3 Prompt Priority 3: No - Non-Urgent/Priority 4 Non-Urgent Priority 4: Yes Criteria Met for Priority 4: Early labor signs >37 weeks Disposition - Disposition OB Disposition: Discharge to home Discharge Date: 12/11/21 Discharge Time: 05:55 I agree with the RN Medical Screening Exam: Yes Physician's MSE Comment: I have neither seen nor examined the patient. Case reviewed; plan agreed upon as documented in EMR&OBIX.: Yes Diagnosis: RELATED CONDITIONS, UNSPECIFIED, THIRD TRIMESTER
== END 2021-02-27 06:23 | disposition home or self-care (01) ==
LOC: FBPOP 03:08
PROVIDERS: ATTEND Obstetrics & Gynecology
DX: Z03.79 Encounter for other suspected maternal and fetal conditions ruled out (principal)
CPT/HCPCS: 59025; 81001; 96360; 99214

== ENCOUNTER 2021-03-01 06:01 | Inpatient (IN) | payer BC, OTHER ==
[2021-02-23 12:09] VITALS: BMI 34.2
[2021-03-01] MEDS ORDERED: OXYTOCIN 10 UNIT/ML 1 ML VIAL IM PRN (06:07)
[2021-03-01] MEDS ORDERED: CARBOPROST TROMETHAMINE 250 MCG/ML 1 ML AMP IM PRN (06:07)
[2021-03-01] MEDS ORDERED: METHYLERGONOVINE 0.2 MG/ML 1 ML AMP IM PRN (06:07)
[2021-03-01] MEDS ORDERED: LIDOCAINE 0.5% (PF) 5 MG/ML (50 ML SDV) SQ PRN (06:07)
[2021-03-01] MEDS ORDERED: TERBUTALINE 1 MG/ML VIAL SQ PRN (06:07)
[2021-03-01] MEDS: LACTATED RINGERS 1,000 ML IV SCH ×2 (06:36→14:43)
[2021-03-01 06:46] LABS: Basophils # (A) 0.1 k/uL (0-0.2); Basophils % (A) 1 %; Eosinophils # (A) 0.1 k/uL (0-0.7); Eosinophils % (A) 1 %; HGB 12.4 gm/dL (11.4-16.0); Lymphocytes # (A) 2.1 k/uL (1.0-4.8); Lymphocytes % (A) 20 %; MCH 28.2 pg (25.0-35.0); MCHC 33.4 g/dL (31.0-37.0); MCV 84.4 fL (80.0-100.0); Mean Platelet Volume 7.3; Monocytes # (A) 0.7 k/uL (0-1.0); Monocytes % (A) 6 %; Neutrophils # (A) 7.2 k/uL (1.3-7.7); Neutrophils % (A) 70 %; Platelet Count 255 k/uL (150-450); RBC 4.38 m/uL (3.80-5.40); RDW 14.3 % (11.5-15.5); WBC 10.4 k/uL (3.8-10.6)
[2021-03-01] MEDS ORDERED: CITRIC ACID-SODIUM CITRATE 15 ML CUP PO ONE (07:37)
[2021-03-01] MEDS ORDERED: OXYTOCIN 30 UNITS/500 ML NS BAG IV ONE (07:53)
[2021-03-01] MEDS ORDERED: ONDANSETRON 4 MG/2 ML VIAL ONE (07:53)
[2021-03-01] MEDS ORDERED: NALBUPHINE 10 MG/ML (1 ML AMP) ONE (07:53)
[2021-03-01] MEDS ORDERED: KETOROLAC 15 MG/ML 1 ML VIAL ONE (07:53)
[2021-03-01] MEDS ORDERED: MORPHINE SULFATE (PF) 0.3 MG/0.3 ML SYR ONE (07:53)
[2021-03-01] MEDS ORDERED: ePHEDrine 50 MG/ML 1 ML AMP ONE (07:53)
--- NOTE | 2021-03-01 08:53 | P.HPOB ---
History of Present Illness H&P Date: 03/01/21 Chief Complaint: Here for repeat section and tubal ligation This is a 30-year-old female 3 para 2001 EDC 03/06/2021 at 39-2/7 weeks' gestation. She presents today for repeat section and tubal ligation. She denies vaginal bleeding or fluid leakage. Fetus is been active throughout the . She has 2 previous sections, not a candidate for , and discussing undesired fertility requesting surgical intervention. Past medical history is significant for kidney infections in the past. Past surgical history section 2015, 2019. Current medications vitamins daily, baby aspirin daily. ALLERGIES none known. Family history significant for emphysema, hypertension, myocardial infarction. Reproductive history section 2015 for failure to progress, repeat C- section 2019 for macrosomia, declining . Social history patient is , she has never been a smoker, she denies alcohol drug use or bleeding. history blood type is A+, rubella status immune. VDRL testing, urine culture, hepatitis B surface antigen, HIV testing, gonorrhea and chlamydia cultures, group B strep cultures all negative. One-hour Glucola 107. On exam patient is 5 foot 8 inches, 230 pounds, vital signs are stable and she is afebrile. The general exam is within normal limits. Cervix is long thick and closed. heart rate is consistent with reactive NST. Fundal height is greater than 40 cm, vertex presentation by Tesfaye's maneuvers. Impression: 39-2/7 weeks intrauterine , 2 previous sections, undesired fertility. Plan we will proceed with low transverse section and tubal ligation. Antibiotics are given. All risks benefits and alternatives have been discussed. All questions answered. Review of Systems Constitutional: Reports as per HPI Past Medical History Past Medical History: No Reported History Additional Past Medical History / Comment(s): recent tx for UTI History of Any Multi-Drug Resistant Organisms: None Reported Past Surgical History: Section Additional Past Surgical History / Comment(s): dental Past Anesthesia/Blood Transfusion Reactions: No Reported Reaction Past Psychological History: No Psychological Hx Reported Smoking Status: Former smoker Past Alcohol Use History: None Reported Additional Past Alcohol Use History / Comment(s): quit smoking age 18, smoked for 1 yr Past Drug Use History: None Reported - Past Family History Mother Family Medical History: COPD Additional Family Medical History / Comment(s): Emphysema, . Father Family Medical History: Coronary Artery Disease (CAD), Hypertension, Myocardial Infarction ([place]) Additional Family Medical History / Comment(s): . Medications and Allergies Home Medications Medication Instructions Recorded Confirmed Type Pnv No.95/Ferrous Fum/Folic AC 1 each PO DAILY 07/19/19 03/01/21 History [ Multivitamin Tablet] Allergies Allergy/AdvReac Type Severity Reaction Status Date / Time No Known Allergies Allergy Verified 03/01/21 06:07 Exam Vital Signs Temp Pulse Resp BP Pulse Ox 03/01/21 06:12 96.9 F L 91 18 147/87 99 Intake and Output 02/28/21 03/01/21 03/01/21 22:59 06:59 14:59 Other: Weight 102.058 kg See dictation under HPI please Results Result Diagrams: 03/01/21 06:15 Assessment and Plan Assessment: 39-2/7 weeks intrauterine , here for repeat low transverse section and tubal ligation. All signs reassuring. Antibiotics given. Plan: For repeat low transverse section and tubal ligation. Again, all risks benefits and alternatives discussed. All questions answered. Time with Patient: Less than 30
[2021-03-01] MEDS ORDERED: METOCLOPRAMIDE 5 MG/ML 2 ML VIAL IVP PRN (09:04)
[2021-03-01] MEDS ORDERED: diphenhydrAMINE 50 MG CAP PO PRN (09:04)
[2021-03-01] MEDS ORDERED: ONDANSETRON 4 MG/2 ML VIAL IVP PRN (09:04)
[2021-03-01] MEDS ORDERED: diphenhydrAMINE 25 MG CAP PO PRN (09:04)
[2021-03-01] MEDS ORDERED: diphenhydrAMINE 50 MG/ML 1 ML VIAL IVP PRN ×2 (09:04)
[2021-03-01] MEDS ORDERED: NALOXONE 0.4 MG/ML 1 ML VIAL IV PRN (09:04)
[2021-03-01] MEDS ORDERED: SIMETHICONE 80 MG CHEWABLE PO PRN (09:04)
[2021-03-01] MEDS ORDERED: ZOLPIDEM 5 MG TAB PO PRN (09:04)
--- NOTE | 2021-03-01 09:04 | P.OP ---
Date of Procedure: 03/01/21 Preoperative Diagnosis: 39-2/7 weeks intrauterine , macrosomia, 2 previous sections, undesired fertility. Postoperative Diagnosis: Liveborn male infant, nuchal cord 2, 4100 g birthweight. Normal-appearing tubes and ovaries bilaterally. Procedure(s) Performed: Repeat low transverse section and tubal ligation Anesthesia: spinal Surgeon: Ana Adair Correction Officer Head #1: Reece Mendoza Estimated Blood Loss (ml): 631 IV fluids (ml): 800 Urine output (ml): 650 Pathology: none sent Condition: stable Disposition: PACU Operative Findings: Liveborn male infant, nuchal cord 2. Normal-appearing tubes and ovaries. Description of Procedure: Patient is brought to the operating suite where a spinal anesthesia with Duramorph is administered. Antibiotics are given. The appropriate timeout is performed to assure proper patient and procedural identification. Cline catheter placed to direct drainage. The abdomen is prepped and draped in the usual sterile fashion. Analgesia is checked and noted to be adequate. A repeat low transverse skin incision is made in this is carried down through the subcutaneous tissue which is approximate 5 cm deep. Fascia is isolated, scored, extended bilaterally with curved Hoskins scissors. Peritoneum is next identified and incised, there is no bowel or bladder involvement. At all times the bladder is Well from the operative field to avoid bladder and/or ureteral injury. Bladder flap is placed over the dome of the bladder. A low transverse uterine incision is made in this is carried down through the myometrium. Artificial amniorrhexis reveals clear fluid. The incision is extended bluntly. The infant's head is delivered in the occiput anterior position, there is a nuchal cord 2 that was easily reduced. Patient is officially delivered of a liveborn male infant at [id number] hours. Umbilical cord is doubly clamped and ligated, he is handed to waiting nurses for evaluation infant weighed 9 lbs. 1 oz. or 4100 g. Placentas delivered manually, it is inspected and noted to be intact with trivascular cord at 0816 hours. Uterus is then massaged, Pitocin is given. Uterus is externalized. It is swept clean with a sterile sponge to avoid any retained products of conception. Uterus is closed in a single full-thickness stitch, locking, 0 Vicryl suture with excellent hemostasis. Abdomen is suctioned with suction on guard posterior to the uterus. Patient's desire for tubal ligation is once again confirmed. Filshie clips are used in the isthmic portion of both tubes, with care to traverse the entire diameter of the tubes into the mesal salpinx. Fimbriated ends are well visualized. Ovaries appear normal. Uterus is then gently placed back into the abdominal cavity. Bilateral gutters are inspected and cleaned. Hemostasis is excellent. Fascia is closed in a single full-thickness stitch of 0 Vicryl with over ligation in the midline. Subcutaneous tissue is irrigated, clean and dry. 3-0 undyed Vicryl is used for subcuticular reapproximation in a running fashion. 4-0 undyed Monocryl is used for final skin closure. Steri-Strips and Mastisol are applied to the wound. Uterus is massaged. All sponge needle and enhancement counts are correct. Total estimated blood loss 631 mL's. Urine is noted to be draining clear in the Cline catheter to. Patient is brought back to the recovery room in excellent condition with stable vital signs including a blood pressure 116/70, pulse 80. scores 8 and 8 at one and 5 minutes respectively. Patient is requesting circumcision for her infant son.
[2021-03-01] MEDS: IBUPROFEN 600 MG TAB PO SCH (18:56)
[2021-03-01] MEDS: SENNOSIDES-DOCUSATE SODIUM 1 EACH TAB PO SCH (21:52)
[2021-03-01] MEDS: ACETAMINOPHEN TAB 500 MG TAB PO PRN (21:56)
[2021-03-02] MEDS: IBUPROFEN 600 MG TAB PO SCH ×5 (01:31→21:32)
[2021-03-02] MEDS: LACTATED RINGERS 1,000 ML IV SCH (01:53)
[2021-03-02 04:39] LABS: Basophils # (A) 0.1 k/uL (0-0.2); Basophils % (A) 1 %; Eosinophils # (A) 0.1 k/uL (0-0.7); Eosinophils % (A) 1 %; HCT 34.6 % (34.0-46.0); HGB 11.3 gm/dL (11.4-16.0); Lymphocytes # (A) 1.5 k/uL (1.0-4.8); Lymphocytes % (A) 15 %; MCH 27.7 pg (25.0-35.0); MCHC 32.6 g/dL (31.0-37.0); MCV 85.1 fL (80.0-100.0); Mean Platelet Volume 7.1; Monocytes # (A) 0.6 k/uL (0-1.0); Monocytes % (A) 6 %; Neutrophils # (A) 7.6 k/uL (1.3-7.7); Neutrophils % (A) 76 %; Platelet Count 249 k/uL (150-450); RBC 4.06 m/uL (3.80-5.40); RDW 14.4 % (11.5-15.5)
[2021-03-02] MEDS: ACETAMINOPHEN TAB 500 MG TAB PO PRN ×3 (06:42→18:21)
--- NOTE | 2021-03-02 06:42 | P.PN ---
Progress Note - Text Progress Note Date: 03/02/21 Patient seen and examined at bedside POD 1 s/p with spinal duramorph. Patients pain is well controlled as duramorph is starting to wean. Patient reports decreased itching. Patient is able to ambulate without difficulty and has used the restroom several times. Patient denies HUANG, F/C, parathesias, weakness. Site is clean and without erythema. Will continue to follow until discharge home.
--- NOTE | 2021-03-02 06:54 | P.PN ---
Subjective Progress Note Date: 03/02/21 Principal diagnosis: Postoperative day #1 Positive flatus. No pain. No complaints. Objective - Vital Signs Vital signs: Vital Signs Temp 98.1 F 03/02/21 04:00 Pulse 87 03/02/21 04:00 Resp 16 03/02/21 04:00 BP 112/68 03/02/21 04:00 Pulse Ox 99 03/02/21 04:00 Intake & Output 03/01/21 03/01/21 03/02/21 06:59 18:59 06:59 Output Total 1961 1649 Balance -1961 -1649 Weight 102.058 kg Output: Urine 700 1650 Uretheral (Cline) 200 Estimated Blood Loss 1262 Other: Voiding Method Indwelling Catheter # Voids 1 - Constitutional General appearance: Present: average body habitus, cooperative - EENT Eyes: Present: PERRLA ENT: Present: hearing grossly normal - Respiratory Respiratory: bilateral: CTA - Cardiovascular Rhythm: regular - Gastrointestinal Gastrointestinal Comment(s): Incision clean and dry, intact, Steri-Strips applied. Fundus firm, midline, symmetric, 18 week size. - Integumentary Integumentary: Present: normal - Neurologic Neurologic: Present: CNII-XII intact - Musculoskeletal Musculoskeletal: Present: gait normal - Psychiatric Psychiatric: Present: A&O x's 3, appropriate affect, intact judgment & insight - Labs CBC & Chem 7: 03/02/21 03:58 Labs: Abnormal Lab Results - Last 24 Hours (Table) 03/02/21 Range/Units 03:58 Hgb 11.3 L (11.4-16.0) gm/dL Assessment and Plan Assessment: Doing well postoperative day #1 Plan: May DC IV. Advanced diet and activity. Circumcision now. Likely discharge home tomorrow morning. Time with Patient: Less than 30
[2021-03-02] MEDS: SENNOSIDES-DOCUSATE SODIUM 1 EACH TAB PO SCH ×2 (09:14→21:32)
[2021-03-03] MEDS: ACETAMINOPHEN TAB 500 MG TAB PO PRN (00:15)
[2021-03-03] MEDS: IBUPROFEN 600 MG TAB PO SCH ×2 (03:34→07:33)
--- NOTE | 2021-03-03 07:19 | P.DS ---
Providers Date of admission: 03/01/21 06:01 Expected date of discharge: 03/03/21 Attending physician: Ana Adair Primary care physician: Stated None Hospital Course: This is a 30-year-old female 3 para 2001 EDC 03/06/2021 at 39-2/7 weeks who presented for repeat low transverse section and tubal ligation. is unremarkable, blood type A+, rubella status immune. Group B strep cultures positive, antibiotics given preoperatively. Please see dictated history and physical for details. Patient underwent a repeat low transverse section and a tubal ligation giving to a liveborn male infant with scores of 8 and 8 at one and 5 minutes respectively. There was a nuchal cord 2 that was reduced. weighed 4100 g or 9 lbs. 1 oz. Please see dictated operative note for details. This morning the patient is doing quite well. She is voiding, and bleeding, passing flatus without difficulty. Vital signs are stable and she is afebrile. Fundus is firm and in the midline, symmetric and 18 week size. Extremities are negative for edema. Breast-feeding is going well, breasts are currently not engorged. is also doing well, circumcision performed yesterday. Patient is judged to be in very good condition for discharge home. She will follow-up with me in the office in 2 weeks. I have reminded her no intercourse, tampons or douching. She will use [id number] Aleve, ibuprofen, or Advil as needed for pain. She will call with any fevers shakes or chills, foul smelling or copious lochia, with the passage of large blood clots, with any pain not alleviated by fckk-eug-tiwftff products, or indeed with any concerns. No driving for 2 weeks. No intercourse. [place] will follow- up with music theory teacher as per recommendations. Assessment: Doing well second postoperative day Patient Condition at Discharge: Good Plan - Discharge Summary Discharge Rx Participant: No New Discharge Prescriptions: No Action Pnv No.95/Ferrous Fum/Folic AC [ Multivitamin Tablet] 1 each PO DAILY Discharge Medication List Pnv No.95/Ferrous Fum/Folic AC [ Multivitamin Tablet] 1 each PO DAILY 07/19/19 [History] Follow up Appointment(s)/Referral(s): Ana Adair MD [STAFF PHYSICIAN] - 2 Weeks Discharge Disposition: HOME SELF-CARE
[2021-03-03] MEDS: SENNOSIDES-DOCUSATE SODIUM 1 EACH TAB PO SCH (07:52)
[2021-03-03 08:13] VITALS: BP 110/77; PULSE 80; RESP 13; TEMP 97.6
== END 2021-03-03 11:45 | disposition home or self-care (01) | DRG 785 ==
LOC: 4FBP 06:01
PROVIDERS: ADMIT Obstetrics & Gynecology; ATTEND Obstetrics & Gynecology
PROC: 0UL70CZ Occlusion of Bilateral Fallopian Tubes with Extraluminal Device, Open Approach (ICD-10-PCS; 2021-03-01)
PROC: 4A0HXCZ Measurement of Products of Conception, Cardiac Rate, External Approach (ICD-10-PCS; 2021-03-01)
PROC: 10D00Z1 Extraction of Products of Conception, Low, Open Approach (ICD-10-PCS; principal; 2021-03-01 08:00)
DX: O34.211 Maternal care for low transverse scar from previous cesarean delivery (principal); O99.824 Streptococcus B carrier state complicating childbirth; O36.63X0 Maternal care for excessive fetal growth, third trimester, not applicable or unspecified; O69.81X0 Labor and delivery complicated by cord around neck, without compression, not applicable or unspecified; O99.73 Diseases of the skin and subcutaneous tissue complicating the puerperium; L29.9 Pruritus, unspecified; Z30.2 Encounter for sterilization; Z37.0 Single live birth; Z3A.39 39 weeks gestation of pregnancy; Z79.82 Long term (current) use of aspirin; Z87.891 Personal history of nicotine dependence; Z87.440 Personal history of urinary (tract) infections
CPT/HCPCS: 85025; 86850; 86900; 86901

== ENCOUNTER 2022-09-27 14:25 | Emergency (ER) | payer BC, OTHER ==
--- NOTE | 2022-09-27 14:45 | ED ---
General Adult HPI - General Source: patient, RN notes reviewed Mode of arrival: ambulatory Limitations: no limitations <Johnathon Hendricks - Last Filed: 09/27/22 14:44> - General Source: patient, RN notes reviewed Mode of arrival: ambulatory Limitations: no limitations - History of Present Illness MD Complaint: RUQ pain <Kristen Barlow - Last Filed: 09/27/22 22:08> - General Chief complaint: Abdominal Pain Stated complaint: abd pain Time Seen by Provider: 09/27/22 14:44 - History of Present Illness Initial comments: 32-year-old female presents emergency Department with chief complaint of right- sided abdominal pain. Patient states pain is progressively getting worse. Patient states has been going on for a while states that she's changed dietary things because it made it her symptoms worse when she ate. She denies any prior gallbladder evaluation. She has no dysuria she does admit that she's been constipated. (Johnathon Hendricks) In addition to the information above, patient states that before symptoms started this time, she ate a tuna fish sandwich with mayonnaise. She used homemade mayonnaise, which she states was made with a vegetarian recipe. Reports associated nausea. Pain has been intermittent for a little over a month at this point, and as listed above, states that she has tried to make dietary changes to reduce the risk of future painful episodes. (Kristen Barlow) - Related Data Home Medications Medication Instructions Recorded Confirmed Pnv No.95/Ferrous Fum/Folic AC 1 each PO DAILY 07/19/19 03/01/21 [ Multivitamin Tablet] Allergies Allergy/AdvReac Type Severity Reaction Status Date / Time No Known Allergies Allergy Verified 09/27/22 14:44 Review of Systems ROS Other: All systems not noted in ROS Statement are negative. <Johnathon Hendricks - Last Filed: 09/27/22 14:44> ROS Other: All systems not noted in ROS Statement are negative. <Kristen Barlow - Last Filed: 09/27/22 22:08> ROS Statement: Those systems with pertinent positive or pertinent negative responses have been documented in the HPI. Past Medical History Past Medical History: No Reported History Additional Past Medical History / Comment(s): recent tx for UTI History of Any Multi-Drug Resistant Organisms: None Reported Past Surgical History: Section Additional Past Surgical History / Comment(s): dental Past Anesthesia/Blood Transfusion Reactions: No Reported Reaction Past Psychological History: No Psychological Hx Reported Smoking Status: Former smoker Past Alcohol Use History: None Reported Additional Past Alcohol Use History / Comment(s): quit smoking age 18, smoked for 1 yr Past Drug Use History: None Reported - Past Family History Mother Family Medical History: COPD Additional Family Medical History / Comment(s): Emphysema, . Father Family Medical History: Coronary Artery Disease (CAD), Hypertension, Myocardial Infarction ([place]) Additional Family Medical History / Comment(s): . <Johnathon Hendricks - Last Filed: 09/27/22 14:44> General Exam <Johnathon Hendricks - Last Filed: 09/27/22 14:44> Limitations: no limitations General appearance: alert, in no apparent distress Head exam: Present: atraumatic, normocephalic, normal inspection Respiratory exam: Present: normal lung sounds bilaterally. Absent: respiratory distress, wheezes, rales, rhonchi, stridor Cardiovascular Exam: Present: regular rate, normal rhythm, normal heart sounds. Absent: systolic murmur, diastolic murmur, rubs, gallop, clicks GI/Abdominal exam: Present: soft, tenderness (RUQ), normal bowel sounds. Absent: distended, guarding, rebound, rigid Neurological exam: Present: alert, oriented X3, CN II-XII intact Psychiatric exam: Present: normal affect, normal mood Skin exam: Present: warm, dry, intact, normal color. Absent: rash <Kristen Barlow - Last Filed: 09/27/22 22:08> - General Exam Comments Initial Comments: Visual Physical Exam Vital signs reviewed General: Well-appearing, nontoxic, no acute distress. Head: Normocephalic, atraumatic Eyes: PERRLA, EOMI ENT: Airway patent Chest: Nonlabored breathing Skin: No visual rash, normal skin tone Neuro: Alert and oriented 3 Musculoskeletal: No gross abnormalities (Johnathon Hendricks) Course Vital Signs 09/27/22 09/27/22 14:42 17:36 Temperature 98.9 F 98.1 F Pulse Rate 99 66 Respiratory 18 16 Rate Blood Pressure 127/74 122/80 O2 Sat by Pulse 99 99 Oximetry Medical Decision Making - Lab Data Result diagrams: 09/27/22 14:54 09/27/22 14:54 - Radiology Data Radiology results: report reviewed, image reviewed <LynnheidiKristen - Last Filed: 09/27/22 22:08> - Medical Decision Making This is a 32-year-old female who presents to the emergency department for abdominal pain. Was pt. sent in by a medical professional or institution? @ -No Did you speak to anyone other than the patient for history? @ -No Did you review nursing and triage notes? @ -Yes, and I agree, it is accurate with regards to the patient's symptoms. Were old charts reviewed? @ -No Differential Diagnosis? @ -Differential Abdominal Pain Women: Appendicitis, Cholecystitis, diverticulosis, ischemic bowel, pancreatitis, hepatitis, UTI, gastroenteritis, AAA, incarcerated hernia, bowel obstruction, constipation, inflammatory bowel, hepatitis, peptic ulcer disease, splenic infarction, perforated viscus, vulvitis, ovarian torsion, PID, kidney stone, pl acenta abruption, this is not meant to be an all-inclusive list EKG interpreted by me (3pts min.)? @ -Not obtained X-rays interpreted by me (1pt min.)? @ -Not obtained CT interpreted by me (1pt min.)? @ -Not obtained U/S interpreted by me (1pt. min.)? @ -Gallbladder ultrasound obtained. My interpretation identifies cholelithiasis. What testing was considered but not performed? (CT, X-rays, U/S, labs)? Why? @ -None What meds were considered but not given? Why? @ -None Did you discuss the management of the patient with other professionals? @ -No Did you reconcile home meds? @ -No Was smoking cessation discussed for >3mins.? @ -No Was critical care preformed (if so, how long)? @ -No Were there social determinants of health that impacted care today? How? (Homelessness, low income, unemployed, alcoholism, drug addiction, transportation, low edu. Level, literacy, decrease access to med. care, halfway, rehab)? @ -No Was there de-escalation of care discussed even if they declined? (Discuss DNR or withdrawal of care, Hospice)? @ -No What co-morbidities impacted this encounter? (DM, HTN, Smoking, COPD, CAD, Cancer, CVA, Hep., AIDS, mental health diagnosis, sleep apnea, morbid obesity)? @ -None Was patient admitted / discharged? @ -Discharged. Lab work obtained and found to be nonactionable. Gallbladder ultrasound reveals cholelithiasis without evidence for acute infection. Pain entirely resolved with Toradol and the patient requested discharge home. Ul trasound results reviewed with the patient, in that the symptoms are most likely related to gallstones and an episode of biliary colic. Information for general surgery follow-up provided. She is instructed to contact them for a follow-up appointment. Advised she follow a low-fat and bland diet for the meantime to reduce the risk of additional flareups in the future. Undiagnosed new problem with uncertain prognosis? @ -None Drug Therapy requiring intensive monitoring for toxicity (Heparin, Nitro, Insulin, Cardizem)? @ -None Were any procedures done? @ -None Diagnosis/symptom? @ -Cholelithiasis, biliary colic Acute, or Chronic, or Acute on Chronic? @ -Acute Uncomplicated (without systemic symptoms) or Complicated (systemic symptoms)? @ -Uncomplicated Side effects of treatment? @ -None Exacerbation, Progression, or Severe Exacerbation] @ -Not applicable Poses a threat to life or bodily function? @ -No Return precautions reviewed in depth, the patient is instructed to return to the emergency department with any new, worsening, or concerning symptoms. Patient verbalized understanding. This case was discussed in detail with the attending ED physician, Dr. Bravo. Presentation, findings, and treatment plan discussed in detail as well. (Kristen Barlow) - Lab Data Lab Results 09/27/22 09/27/22 09/27/22 Range/Units 14:54 14:54 14:54 WBC 7.6 (3.8-10.6) k/uL RBC 4.97 (3.80-5.40) m/uL Hgb 14.3 (11.4-16.0) gm/dL Hct 43.2 (34.0-46.0) % MCV 86.8 (80.0-100.0) fL MCH 28.8 (25.0-35.0) pg MCHC 33.1 (31.0-37.0) g/dL RDW 13.1 (11.5-15.5) % Plt Count 292 (150-450) k/uL MPV 6.9 Neutrophils % 59 % Lymphocytes % 30 % Monocytes % 5 % Eosinophils % 4 % Basophils % 1 % Neutrophils # 4.5 (1.3-7.7) k/uL Lymphocytes # 2.3 (1.0-4.8) k/uL Monocytes # 0.4 (0-1.0) k/uL Eosinophils # 0.3 (0-0.7) k/uL Basophils # 0.1 (0-0.2) k/uL Sodium (137-145) mmol/L Potassium (3.5-5.1) mmol/L Chloride (98-107) mmol/L Carbon Dioxide (22-30) mmol/L Anion Gap mmol/L BUN (7-17) mg/dL Creatinine (0.52-1.04) mg/dL Est GFR (CKD-EPI)AfAm (>60 ml/min/1.73 sqM) Est GFR (CKD-EPI)NonAf (>60 ml/min/1.73 sqM) Glucose (74-99) mg/dL Calcium (8.4-10.2) mg/dL Total Bilirubin (0.2-1.3) mg/dL AST (14-36) U/L ALT (4-34) U/L Alkaline Phosphatase (38-126) U/L Total Protein (6.3-8.2) g/dL Albumin (3.5-5.0) g/dL Lipase (23-300) U/L Urine Color Light Yellow Urine Appearance Clear (Clear) Urine pH 7.5 (5.0-8.0) Ur Specific [place] 1.008 (1.001-1.035) Urine Protein Negative (Negative) Urine Glucose (UA) Negative (Negative) Urine Ketones Negative (Negative) Urine Blood Moderate H (Negative) Urine Nitrite Negative (Negative) Urine Bilirubin Negative (Negative) Urine Urobilinogen <2.0 (<2.0) mg/dL Ur Leukocyte Esterase Negative (Negative) Urine RBC 11 H (0-5) /hpf Ur Squamous Epith Cells <1 (0-4) /hpf Urine HCG, Qual Not Detected (Not Detectd) 09/27/22 Range/Units 14:54 WBC (3.8-10.6) k/uL RBC (3.80-5.40) m/uL Hgb (11.4-16.0) gm/dL Hct (34.0-46.0) % MCV (80.0-100.0) fL MCH (25.0-35.0) pg MCHC (31.0-37.0) g/dL RDW (11.5-15.5) % Plt Count (150-450) k/uL MPV Neutrophils % % Lymphocytes % % Monocytes % % Eosinophils % % Basophils % % Neutrophils # (1.3-7.7) k/uL Lymphocytes # (1.0-4.8) k/uL Monocytes # (0-1.0) k/uL Eosinophils # (0-0.7) k/uL Basophils # (0-0.2) k/uL Sodium 139 (137-145) mmol/L Potassium 4.1 (3.5-5.1) mmol/L Chloride 105 (98-107) mmol/L Carbon Dioxide 27 (22-30) mmol/L Anion Gap 7 mmol/L BUN 15 (7-17) mg/dL Creatinine 0.89 (0.52-1.04) mg/dL Est GFR (CKD-EPI)AfAm >90 (>60 ml/min/1.73 sqM) Est GFR (CKD-EPI)NonAf 87 (>60 ml/min/1.73 sqM) Glucose 97 (74-99) mg/dL Calcium 9.3 (8.4-10.2) mg/dL Total Bilirubin 0.4 (0.2-1.3) mg/dL AST 28 (14-36) U/L ALT 35 H (4-34) U/L Alkaline Phosphatase 68 (38-126) U/L Total Protein 7.8 (6.3-8.2) g/dL Albumin 4.4 (3.5-5.0) g/dL Lipase 39 (23-300) U/L Urine Color Urine Appearance (Clear) Urine pH (5.0-8.0) Ur Specific [place] (1.001-1.035) Urine Protein (Negative) Urine Glucose (UA) (Negative) Urine Ketones (Negative) Urine Blood (Negative) Urine Nitrite (Negative) Urine Bilirubin (Negative) Urine Urobilinogen (<2.0) mg/dL Ur Leukocyte Esterase (Negative) Urine RBC (0-5) /hpf Ur Squamous Epith Cells (0-4) /hpf Urine HCG, Qual (Not Detectd) Disposition <Johnathon Hendricks - Last Filed: 09/27/22 14:44> Is patient prescribed a controlled substance at d/c from ED?: No <Kristen Barlow - Last Filed: 09/27/22 22:08> Clinical Impression: Cholelithiasis, Biliary colic Disposition: HOME SELF-CARE Instructions (If sedation given, give patient instructions): Biliary Colic (ED), Gallstones (ED), Low Fat Diet (ED) Additional Instructions: Return to the emergency department with any new, worsening, or concerning symptoms. Alternate with ibuprofen and Tylenol as needed for pain relief. You can take the Zofran up to every 8 hours as needed for nausea and vomiting. Follow a low-fat and bland diet for the meantime to reduce the risk of future episodes of abdominal pain. Contact general surgery as listed below first thing tomorrow morning for a follow-up appointment. Let them know that you were seen in the emergency department for gallstones and need to discuss having the gallbladder removed. Follow up with your primary care provider in 1-2 days. Referrals: None,Stated [Primary Care Provider] - 1-2 days Haja Snow MD [STAFF PHYSICIAN] - 1-2 days
[2022-09-27 15:02] LABS: Basophils # (A) 0.1 k/uL (0-0.2); Basophils % (A) 1 %; Eosinophils # (A) 0.3 k/uL (0-0.7); Eosinophils % (A) 4 %; HCT 43.2 % (34.0-46.0); HGB 14.3 gm/dL (11.4-16.0); Lymphocytes # (A) 2.3 k/uL (1.0-4.8); Lymphocytes % (A) 30 %; MCH 28.8 pg (25.0-35.0); MCHC 33.1 g/dL (31.0-37.0); MCV 86.8 fL (80.0-100.0); Mean Platelet Volume 6.9; Monocytes # (A) 0.4 k/uL (0-1.0); Monocytes % (A) 5 %; Neutrophils # (A) 4.5 k/uL (1.3-7.7); Neutrophils % (A) 59 %; Platelet Count 292 k/uL (150-450); RBC 4.97 m/uL (3.80-5.40); RDW 13.1 % (11.5-15.5); WBC 7.6 k/uL (3.8-10.6)
[2022-09-27 15:13] LABS: ALT 35 U/L (4-34); AST 28 U/L (14-36); African American GFR (CKD) >90 (>60 ml/min/1.73 sqM); Albumin 4.4 g/dL (3.5-5.0); Alkaline Phosphatase 68 U/L (38-126); Anion Gap 7 mmol/L; Blood Urea Nitrogen 15 mg/dL (7-17); Calcium 9.3 mg/dL (8.4-10.2); Carbon Dioxide 27 mmol/L (22-30); Chloride 105 mmol/L (98-107); Glucose 97 mg/dL (74-99); Lipase 39 U/L (23-300); Non-African American GFR(CKD) 87 (>60 ml/min/1.73 sqM); Potassium 4.1 mmol/L (3.5-5.1); Sodium 139 mmol/L (137-145); Total Bilirubin 0.4 mg/dL (0.2-1.3); Total Protein 7.8 g/dL (6.3-8.2)
[2022-09-27 15:28] LABS: Appearance,Urine Clear (Clear); Bilirubin,Urine Negative (Negative); Blood,Urine Moderate (Negative); Color,Urine Light Yellow; Glucose,Urine (UA) Negative (Negative); Ketones,Urine Negative (Negative); Leukocyte Esterase,Urine Negative (Negative); Nitrite,Urine Negative (Negative); PH, Urine 7.5 (5.0-8.0); Protein,Urine Negative (Negative); RBC,Urine 11 /hpf (0-5); Specific Gravity,Urine 1.008 (1.001-1.035); Squamous Epithelial Cell,Urine <1 /hpf (0-4); Urobilinogen,Urine <2.0 mg/dL (<2.0)
--- NOTE | 2022-09-27 15:56 | US ---
EXAMINATION TYPE: US gallbladder DATE OF EXAM: 09/27/2022 COMPARISON: NONE CLINICAL INDICATION: Female, 32 years old with history of pain; RUQ pain TECHNIQUE: Multiple sonographic images of the right upper quadrant are obtained. FINDINGS: EXAM MEASUREMENTS: Liver Length: 12.7 cm Gallbladder Wall: 0.6 cm CBD: 0.5 cm Right Kidney: 11.6 x 4.3 x 5.9 cm ANIMAL HUSBANDRY PROFESSOR NOTES: Pancreas: visualized portions wnl Liver: wnl Gallbladder: SUSHILA sign, no lumen seen. full of stones with shadowing. Evidence for sonographic Mckeon's sign: Yes CBD: wnl Right Kidney: No hydronephrosis or masses seen IMPRESSION: Findings are suspicious for a collapsed gallbladder with multiple gallstones. No definite biliary obs truction.
[2022-09-27] MEDS ORDERED: SODIUM CHLORIDE 0.9% 1,000 ML IV STA (16:23)
[2022-09-27] MEDS ORDERED: KETOROLAC 15 MG/ML 1 ML VIAL IVP STA (16:23)
[2022-09-27] MEDS ORDERED: ACET/COD 300 MG/30 MG STARTER PACK 6 TAB BTL PO STA (17:09)
[2022-09-27] MEDS ORDERED: IBUPROFEN 600 MG STARTER PACK 4 TAB BTL PO STA (17:09)
[2022-09-27] MEDS ORDERED: ONDANSETRON 4 MG ODT STARTER PACK 2 TAB BTL PO STA (17:09)
[2022-09-27 17:39] VITALS: BP 122/80; PULSE 66; RESP 16; TEMP 98.1
== END 2022-09-27 17:59 | disposition home or self-care (01) ==
LOC: EC 14:25
DX: K80.70 Calculus of gallbladder and bile duct without cholecystitis without obstruction (principal); Z87.891 Personal history of nicotine dependence
CPT/HCPCS: 36415; 80053; 83690; 85025; 81001; 81025; 76705; 99284; 96374; 96361; J1885; S0119